=== PATIENT | female | born 2000 | race American Indian/Alaskan Native ===

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

== ENCOUNTER 2022-01-31 03:26 | Emergency (ER) | payer MEDICAID, OTHER ==
[2022-01-31] MEDS ORDERED: ACETAMINOPHEN 325 MG TAB PO ONE (04:14)
--- NOTE | 2022-01-31 04:24 | Emergency Department Report ---
ED General Adult HPI - General Chief complaint: Headache Stated complaint: HEADACHES Time Seen by Provider: 01/31/22 03:59 Source: patient Mode of arrival: Ambulatory Limitations: No Limitations - History of Present Illness Initial comments: Patient is a 21-year-old female presenting to ED with multiple complaints. Her initial complaint is a headache that she has had for the past few days. She also reports a wound to her left thigh which she states developed after being bitten by a spider a little over a week ago. States the lesion developed into a boil which she popped 3 days ago. She also complains of left-sided rib pain and requests a test. - Related Data Previous Rx's Medication Instructions Recorded Last Taken Type Ondansetron [Zofran Odt] 4 mg PO Q8HR #10 tab.rapdis 07/15/15 Unknown Rx Ibuprofen [Motrin] 400 mg PO Q8H PRN #20 tablet 08/27/17 Unknown Rx Loratadine (Nf) [Claritin (Nf)] 10 mg PO DAILY #15 tablet 08/27/17 Unknown Rx guaiFENesin [Robitussin] 200 mg PO Q4HR #100 ml 08/27/17 Unknown Rx predniSONE [Deltasone] 20 mg PO QAM #5 tab 08/27/17 Unknown Rx Cyclobenzaprine [Flexeril] 10 mg PO BID PRN #20 tablet 06/08/18 Unknown Rx Menthol/Camphor [[place] 1 applicatio TP QID PRN #1 tube 06/08/18 Unknown Rx Ointment] Naproxen 500 mg PO BID PRN #30 tablet 06/08/18 Unknown Rx Albuterol Mdi (or & Nicu Only) 2 puff IH QID PRN #1 inhalation 06/27/19 Unknown Rx [ProAir HFA Inhaler] methylPREDNISolone [Medrol 4MG 4 mg PO ONCE #1 tab.ds.pk 06/27/19 Unknown Rx DOSEPAK (21 tabs)] Allergies Allergy/AdvReac Type Severity Reaction Status Date / Time No Known Allergies Allergy Verified 02/24/16 19:00 ED Review of Systems ROS: Stated complaint: HEADACHES Other details as noted in HPI Constitutional: denies: chills, fever Respiratory: denies: cough, shortness of breath, wheezing Cardiovascular: denies: chest pain, palpitations Gastrointestinal: denies: abdominal pain, nausea, diarrhea Genitourinary: denies: urgency, dysuria, discharge Musculoskeletal: denies: back pain, joint swelling, arthralgia Skin: lesions Neurological: headache Psychiatric: denies: anxiety, depression ED Past Medical Hx - Social History Smoking Status: Never Smoker Substance Use Type: None - Medications Home Medications: Home Medications Medication Instructions Recorded Confirmed Last Taken Type Ondansetron [Zofran Odt] 4 mg PO Q8HR #10 tab.rapdis 07/15/15 Unknown Rx Ibuprofen [Motrin] 400 mg PO Q8H PRN #20 tablet 08/27/17 Unknown Rx Loratadine (Nf) [Claritin (Nf)] 10 mg PO DAILY #15 tablet 08/27/17 Unknown Rx guaiFENesin [Robitussin] 200 mg PO Q4HR #100 ml 08/27/17 Unknown Rx predniSONE [Deltasone] 20 mg PO QAM #5 tab 08/27/17 Unknown Rx Cyclobenzaprine [Flexeril] 10 mg PO BID PRN #20 tablet 06/08/18 Unknown Rx Menthol/Camphor [[place] 1 applicatio TP QID PRN #1 tube 06/08/18 Unknown Rx Ointment] Naproxen 500 mg PO BID PRN #30 tablet 06/08/18 Unknown Rx Albuterol Mdi (or & Nicu Only) 2 puff IH QID PRN #1 inhalation 06/27/19 Unknown Rx [ProAir HFA Inhaler] methylPREDNISolone [Medrol 4MG 4 mg PO ONCE #1 tab.ds.pk 06/27/19 Unknown Rx DOSEPAK (21 tabs)] ED Physical Exam - General Limitations: No Limitations General appearance: alert, in no apparent distress - Head Head exam: Present: atraumatic, normocephalic - Respiratory Respiratory exam: Present: normal lung sounds bilaterally. Absent: respiratory distress - Cardiovascular Cardiovascular Exam: Present: regular rate, normal rhythm, normal heart sounds - GI/Abdominal GI/Abdominal exam: Present: soft. Absent: distended, tenderness - Rectal Rectal exam: Present: deferred - Extremities Exam Extremities exam: Present: full ROM, other (Circular well demarcated tunneling wound to the lateral aspect of the left thigh approximately 2 cm in diameter without active drainage. There is no surrounding discoloration, erythema or necrosis.) - Neurological Exam Neurological exam: Present: alert, oriented X3 - Psychiatric Psychiatric exam: Present: normal affect, normal mood - Skin Skin exam: Present: warm, dry, other (Numerous scars/lesions to forearms and hands) ED Course Vital Signs 01/31/22 01/31/22 03:42 04:11 Temperature 99.2 F Pulse Rate 108 H Respiratory 18 Rate Blood Pressure 157/76 [Right] O2 Sat by Pulse 95 98 Oximetry ED Medical Decision Making - Lab Data Result diagrams: 01/31/22 04:13 01/31/22 04:13 - Medical Decision Making Patient initially refused blood work stating that she is a hard stick. Physical exam reveals numerous scars and track haywood to hands and forearms suggestive of history of IV drug use. She later agreed to blood draw however decided to leave AMA stating she felt better. Critical care attestation.: If time is entered above; I have spent that time in minutes in the direct care of this critically ill patient, excluding procedure time. ED Disposition Clinical Impression: Open wound of left thigh, Positive urine test, Headache Disposition: LEFT AGAINST MEDICAL ADVICE Is pt being admited?: No Condition: Stable
[2022-01-31 04:48] LABS: Basophils # (Auto) 0.1 K/mm3 (0.0-0.1); Basophils % (Auto) 1.2 % (0.0-1.8); Eosinophils # (Auto) 0.1 K/mm3 (0.0-0.4); Eosinophils % (Auto) 0.8 % (0.0-4.3); Hematocrit 39.1 % (30.3-42.9); Hemoglobin 13.6 gm/dl (10.1-14.3); Lymphocytes # (Auto) 2.6 K/mm3 (1.2-5.4); Lymphocytes % (Auto) 30.3 % (13.4-35.0); Mean Corpuscular HGB Conc 35 % (30-34); Mean Corpuscular Volume 88 fl (79-97); Monocytes # (Auto) 0.5 K/mm3 (0.0-0.8); Monocytes % (Auto) 5.8 % (0.0-7.3); Platelet Count 305 K/mm3 (140-440); Red Blood Count 4.43 M/mm3 (3.65-5.03); Red Cell Distribution Width 12.7 % (13.2-15.2)
[2022-01-31 04:58] LABS: HCG Qualitative,Urine Positive (Negative)
[2022-01-31 05:05] LABS: BUN/Creatinine Ratio 11; Blood Urea Nitrogen 9 mg/dL (7-17); Hemolysis Index 5
[2022-01-31 05:08] LABS: Amphetamine Screen,Urine PRESUMPTIVE POSITIVE; Benzodiazepines Screen,Urine PRESUMPTIVE NEGATIVE; Cannabinoid Screen,Urine PRESUMPTIVE POSITIVE; Cocaine Screen,Urine PRESUMPTIVE POSITIVE; Methadone Screen,Urine PRESUMPTIVE NEGATIVE; Opiate Screen,Urine PRESUMPTIVE POSITIVE
--- NOTE | 2022-01-31 10:44 | Emergency Department Report ---
Blank Doc - Documentation Documentation: Patient returned back to the ED for follow-up or her lab results to see if she was as well as to receive resources to outpatient drug treatment. Patient informed of her lab results and that she is . CMP unremarkable CBC unremarkable Patient also informed that she is positive for opiates, meth, cocaine, marijuana. Patient reports no other acute symptoms at this time. Patient to be given resources to PATIENT CASE COORDINATOR as well as drug rehab centers. Patient will receive a dressing to left thigh wound. Patient agrees with plan of care and verbalizes understanding patient stable for discharge home. See initial provider note for initial assessment and HPI. Vital Signs 01/31/22 01/31/22 01/31/22 03:42 04:11 09:57 Temperature 99.2 F 98.2 F Pulse Rate 108 H 99 H Respiratory 18 20 Rate Blood Pressure 157/76 100/68 [Right] O2 Sat by Pulse 95 98 97 Oximetry Lab Results 01/31/22 01/31/22 01/31/22 Range/Units 04:13 04:13 04:14 WBC 8.4 (4.5-11.0) K/mm3 RBC 4.43 (3.65-5.03) M/mm3 Hgb 13.6 (10.1-14.3) gm/dl Hct 39.1 (30.3-42.9) % MCV 88 (79-97) fl MCH 31 (28-32) pg MCHC 35 H (30-34) % RDW 12.7 L (13.2-15.2) % Plt Count 305 (140-440) K/mm3 Lymph % (Auto) 30.3 (13.4-35.0) % [place] % (Auto) 5.8 (0.0-7.3) % Eos % (Auto) 0.8 (0.0-4.3) % Baso % (Auto) 1.2 (0.0-1.8) % Lymph # (Auto) 2.6 (1.2-5.4) K/mm3 [place] # (Auto) 0.5 (0.0-0.8) K/mm3 Eos # (Auto) 0.1 (0.0-0.4) K/mm3 Baso # (Auto) 0.1 (0.0-0.1) K/mm3 Seg Neutrophils % 61.9 (40.0-70.0) % Seg Neutrophils # 5.2 (1.8-7.7) K/mm3 Sodium 135 L (137-145) mmol/L Potassium 4.3 (3.6-5.0) mmol/L Chloride 101.8 (98-107) mmol/L Carbon Dioxide 21 L (22-30) mmol/L Anion Gap 17 mmol/L BUN 9 (7-17) mg/dL Creatinine 0.8 (0.6-1.2) mg/dL Estimated GFR > 60 ml/min BUN/Creatinine Ratio 11 % Glucose 89 (65-100) mg/dL Calcium 9.0 (8.4-10.2) mg/dL Urine HCG, Qual (Negative) Urine Opiates Screen Presumptive positive Urine Methadone Screen Presumptive negative Ur Barbiturates Screen Presumptive negative Ur Phencyclidine Scrn Presumptive negative Ur Amphetamines Screen Presumptive positive U Benzodiazepines Scrn Presumptive negative Urine Cocaine Screen Presumptive positive U Marijuana (THC) Screen Presumptive positive Drugs of Abuse Note Disclamer 01/31/22 Range/Units Unknown WBC (4.5-11.0) K/mm3 RBC (3.65-5.03) M/mm3 Hgb (10.1-14.3) gm/dl Hct (30.3-42.9) % MCV (79-97) fl MCH (28-32) pg MCHC (30-34) % RDW (13.2-15.2) % Plt Count (140-440) K/mm3 Lymph % (Auto) (13.4-35.0) % [place] % (Auto) (0.0-7.3) % Eos % (Auto) (0.0-4.3) % Baso % (Auto) (0.0-1.8) % Lymph # (Auto) (1.2-5.4) K/mm3 [place] # (Auto) (0.0-0.8) K/mm3 Eos # (Auto) (0.0-0.4) K/mm3 Baso # (Auto) (0.0-0.1) K/mm3 Seg Neutrophils % (40.0-70.0) % Seg Neutrophils # (1.8-7.7) K/mm3 Sodium (137-145) mmol/L Potassium (3.6-5.0) mmol/L Chloride (98-107) mmol/L Carbon Dioxide (22-30) mmol/L Anion Gap mmol/L BUN (7-17) mg/dL Creatinine (0.6-1.2) mg/dL Estimated GFR ml/min BUN/Creatinine Ratio % Glucose (65-100) mg/dL Calcium (8.4-10.2) mg/dL Urine HCG, Qual Positive A (Negative) Urine Opiates Screen Urine Methadone Screen Ur Barbiturates Screen Ur Phencyclidine Scrn Ur Amphetamines Screen U Benzodiazepines Scrn Urine Cocaine Screen U Marijuana (THC) Screen Drugs of Abuse Note
[2022-01-31 11:13] VITALS: BP 138/82
== END 2022-01-31 11:12 | disposition home or self-care (01) ==
LOC: ED 03:26
DX: S71.102A Unspecified open wound, left thigh, initial encounter (principal); Z32.01 Encounter for pregnancy test, result positive; R51.9 Headache, unspecified; Z79.899 Other long term (current) drug therapy; X58.XXXA Exposure to other specified factors, initial encounter; Y93.89 Activity, other specified; Y92.89 Other specified places as the place of occurrence of the external cause; Y99.8 Other external cause status
CPT/HCPCS: 36415; 80048; 80307; 81025; 85025; 99283